=== PATIENT | female | born 1950 | race Caucasian/White ===

== ENCOUNTER 2016-07-18 05:30 | Inpatient (IN) | payer OTHER ==
[2016-07-15 10:27] LABS: BILIRUBIN,URINE NEGATIVE (NEGATIVE); BLOOD, URINE NEGATIVE (NEGATIVE); CLARITY/URINE CLEAR (CLEAR); COLOR,URINE YELLOW (YELLOW); GLUCOSE,URINE NEGATIVE (NEGATIVE); KETONES,URINE NEGATIVE (NEGATIVE); LEUKOCYTE ESTERASE ,URINE NEGATIVE (NEGATIVE); NITRITE, URINE NEGATIVE (NEGATIVE); PH,URINE 5.5 (5.0-8.0); PROTEIN URINE NEGATIVE (NEGATIVE); UROBILINOGEN,URINE 0.2 (0.2-1.0)
[2016-07-15 10:35] LABS: CREATININE 0.69 mg/dL (0.55-1.30); POTASSIUM 4.5 mmol/L (3.5-5.1)
[2016-07-15 10:49] LABS: BASOPHILS % (AUTO) 0.7 % (0.0-2.0); EOSINOPHILS % (AUTO) 0.9 % (0.0-4.0); HEMATOCRIT 46.5 % (36-48); HEMOGLOBIN 15.5 g/dL (12.0-16.0); LYMPHOCYTES # (AUTO) 1.7 K/uL (1.0-5.5); MEAN CORPUSCULAR HEMOGLOBIN 28 pg (27-31); MEAN CORPUSCULAR HGB CONC 33 % (32-36); MEAN CORPUSCULAR VOLUME 83 fL (79.0-98.0); MONOCYTES # (AUTO) 0.5 K/uL (0.0-1.0); MONOCYTES % (AUTO) 9.1 % (1.7-9.3); NEUTROPHILS # (AUTO) 3.3 K/uL (1.8-7.7); NEUTROPHILS % (AUTO) 59.3 % (40.0-70.0); PLATELET COUNT (AUTO) 269 K/uL (130-430); RED BLOOD CELL COUNT(AUTO) 5.64 MIL/uL (4.2-6.2); RED CELL DISTRIBUTION WIDTH 12.6 % (9.0-15.0); WHITE BLOOD COUNT (AUTO) 5.5 K/uL (4.8-10.8)
[2016-07-15 11:25] LABS: PROTHROMBIN TIME 10.4 SECS (9.5-12.5)
[~2016-07-18] VITALS: Ht 167.6 cm; Wt 63.5 kg
[2016-07-18] MEDS ORDERED: CELE200C PO (06:04)
[2016-07-18] MEDS ORDERED: TRAM50TA92 PO (06:04)
[2016-07-18] MEDS ORDERED: CEFAZOLIN 1 GM IVPB PREMIX 50 ML IV ONE (07:00)
[2016-07-18] MEDS ORDERED: TRANEXAMIC ACID 1,000 MG/10 ML VIAL IV ONE ×2 (07:15→07:21)
[2016-07-18] MEDS ORDERED: POLYMYXIN 500,000/BACIT.10,000 UNITS in NS IRR 1 L IR ONE (07:18)
[2016-07-18] MEDS ORDERED: NS 1000 ML BAG IV ONE (07:21)
[2016-07-18] MEDS ORDERED: CEFAZOLIN 2 GM IVPB PREMIX 50 ML IV ONE (07:21)
[2016-07-18] MEDS ORDERED: NS 100 ML BAG IV ONE (07:21)
[2016-07-18] MEDS ORDERED: ONDANSETRON HCL 4 MG/2 ML VIAL IVP ONE (07:21)
[2016-07-18] MEDS ORDERED: BUPIVACAINE /EPINEPHRINE/PF 0.5% 30 ML VIAL INJ ONE (07:21)
[2016-07-18] MEDS ORDERED: SEVOFLURANE 15 MIN GAS INH ONE (07:21)
[2016-07-18] MEDS ORDERED: PROPOFOL 200MG/ 20ML VIAL (DIPRIVAN) IV ONE (07:21)
[2016-07-18] MEDS ORDERED: KETOROLAC TROMETHAMINE 30 MG VIAL IVP ONE (07:21)
[2016-07-18] MEDS ORDERED: LIDOCAINE 2%, 20 ML MDV INJ ONE (07:21)
[2016-07-18] MEDS ORDERED: DEXAMETHASONE SOD PHOSPHATE 4 MG/ML VIAL IVP ONE (07:21)
[2016-07-18] MEDS ORDERED: fentaNYL CITRATE/PF 100 MCG/2 ML AMP IVP ONE (07:21)
[2016-07-18] MEDS ORDERED: D5/0.45 NS 1,000 ML IV ONE (09:08)
[2016-07-18] MEDS ORDERED: BISACODYL 10 MG/SUPPOSITORY RC PRN (09:15)
[2016-07-18] MEDS ORDERED: HYDROcodone/ACETAMIN 7.5-325 MG TAB PO PRN (09:15)
[2016-07-18] MEDS ORDERED: MORPHINE SULFATE 10 MG/ML VIAL IM PRN (09:15)
[2016-07-18] MEDS ORDERED: ACETAMINOPHEN 325 MG TABLET PO PRN (09:15)
[2016-07-18] MEDS ORDERED: MEPERIDINE HCL/PF 25 MG/ML DISP.SYRIN ONE (09:36)
[2016-07-18] MEDS: HYDROmorphone 1 MG INJ. 1 MG/ML AMPUL ONE ×2 (09:40→09:45)
[2016-07-18] MEDS ORDERED: HYDROmorphone 1 MG INJ. 1 MG/ML AMPUL ONE (09:52)
[2016-07-18 10:30] VITALS: BP 121/73; PULSE 78; PULSE 97; RESP 16; RESP 18; TEMP 98.8; O2SAT 97
--- NOTE | 2016-07-18 10:30 | NUR ---
Initial Note Received pt in bed, no s/s of distress or sob noted, pt has no c/o pain at this time, pt in stable condition, pt aaox4, verbal. Pt has an iv catheter, patent, no signs of infection or infiltration noted. Pt has a dressing on left knee, clean and dry, polar care and trapeze for bed mobility. Pt able to move toes on left foot, capillary refill less than 3 seconds, pulse palpable, sensation present, pt has no c/o paralysis or tingling, warm to touch. Educated pt on use of incentive spirometer, pt to use 10 times an hour while awake, pt verbalized understanding and at 2000ml. Pt has a human resources psychologist at prescribed settings. Bed at lowest position, call light within reach, will continue to monitor pt for any changes, fall precautions in place. F/c Draining via gravity and pt has a hemovac on left knee.
[2016-07-18] MEDS ORDERED: NALOXONE HCL 0.4 MG/ML AMP (NARCAN) IVP PRN (11:00)
[2016-07-18] MEDS ORDERED: MORPHINE 4 MG/ML INJ. SYRINGE IVP PRN (11:00)
--- NOTE | 2016-07-18 11:01 | NUR ---
Hospitalist Consult: for Dr. Morejon, ordered by Dr. Bloom, spoke with
--- NOTE | 2016-07-18 12:53 | NUR ---
Rounds Pt in bed, no s/s of distress or sob noted, pt has no c/o pain at this time, pt in stable condition, pt resting comfortably, will continue to monitor pt for any changes.
[2016-07-18] MEDS: CEFAZOLIN 1 GM IVPB PREMIX 50 ML IV SCH ×2 (13:52→21:28)
--- NOTE | 2016-07-18 14:01 | NUR ---
Rounds Patient is resting comfortably, no complaints of pain at this time. VALVE SEATER OPERATOR is in place for pain management. Patient is using IS as prescribed. IV antibiotics started, no evidence of infiltration, patent. No signs and symptoms of distress, stable condition. Bed in lowest position, bed alarm on, and call light within reach. Will continue to monitor.
--- NOTE | 2016-07-18 14:24 | NUR ---
Discharge Planning contacted patient's Workman's Comp contact, Krystal [phone], to discuss DC planning. Krystal stated that patient had been authorized for Out patient physical therapy 3x/wk x 4 wks, CPM, FWW, and a Cane. Krystal will be available today and tomorrow. Starting Monday07/20/16 Contact will be Danitza Viveros [phone] I met with patient at bedside and she stated that she already had a FWW and a cane and only needed the CPM. She had no preference on outpatient rehab facilities although she has been to one [facility] but does not remember the name. I contacted [facility] to see if anything had been set up through the office and she stated that she had the auth in hand and will fax to this office. But she had not set anything up as yet. [place] [employer] Claim# [id number] Date of Injury 08-18-01 [facility] [place], [place] company: [employer] [phone] Contact: [facility] Network: [facility] [phone] Addendum: 07/18/16 at 1453 by Lakia Tapia RN Contacted [facility] [phone] they requested PT order faxed to [phone] Ref#[id number]. They will then set up the outpatient PT. Addendum: 07/18/16 at 1516 by Lakia Tapia RN Daughter's address where patient will be staying once discharged: [address]
--- NOTE | 2016-07-18 14:30 | NUR ---
Neurovascular Check Pt able to move toes on left foot, capillary refill less than 3 seconds, pulse palpable, sensation present, pt has no c/o paralysis or tingling, warm to touch. Pt has a dressing on left knee, clean and dry.
--- NOTE | 2016-07-18 14:58 | NUR ---
CPM will need to be ordered once we have settings. Patient will be staying at her daughter's home in [place]. Contact is her Raymond Perez Addendum: 07/18/16 at 1525 by Lakia Tapia RN Received call from Pancho @ [employer] [phone], who called to say that he received auth from [facility] for the CPM machine. Pancho asked that he be called with DC date so he can arrange delivery of CPM machine. I gave him 's name and cell phone # along with [facility] home address where patient will be staying. [address]
[2016-07-18 16:29] VITALS: BP 121/73; PULSE 78; RESP 16; TEMP 98.8; O2SAT 97
[2016-07-18 16:36] VITALS: BP 125/78; PULSE 81; RESP 17; TEMP 98; O2SAT 98
--- NOTE | 2016-07-18 16:44 | NUR ---
NAUSEA Pt c/o nausea, no vomiting noted, dr tessie branch for orders, awaiting call back. Addendum: 07/18/16 at 1758 by Carolina Huntley RN dr radford called back and gave new orders for kiley powers
[2016-07-18] MEDS: RIVAROXABAN 10 MG TABLET PO SCH (17:39)
[2016-07-18] MEDS ORDERED: ONDANSETRON 4 MG ODT TAB PO PRN (18:00)
--- NOTE | 2016-07-18 18:10 | NUR ---
Closing Note Pt in bed, no s/s of distress or sob noted, pt has no c/o pain at this time, pt in stable condition, pt aaox4, verbal. Pt has an iv catheter, patent, no signs of infection or infiltration noted. Pt has a dressing on left knee, clean and dry, polar care and trapeze for bed mobility. Pt able to move toes on left foot, capillary refill less than 3 seconds, pulse palpable, sensation present, pt has no c/o paralysis or tingling, warm to touch. Educated pt on use of incentive spirometer, pt at 2000ml. Pt has a corn crop supervisor at prescribed settings. Bed at lowest position, call light within reach, will endorse care of pt to incoming nurse, fall precautions in place. F/c Draining via gravity and pt has a hemovac on left knee to suction.
--- NOTE | 2016-07-18 18:26 | NUR ---
Vomit Pt vomited x1, patients dumped vomit before calling nurse, per pt she stated that she vomited the xarelto and the zodran administered earlier to her. Nurse did not witness, dr tessie branch to notify, awaiting call back. Addendum: 07/18/16 at 1845 by Carolina Huntley RN dr radford called back and stated not to give xarelto that it will be given tomorrow and to give her zofran 4mg ivp q6 prn nausea and vomiting
--- NOTE | 2016-07-18 18:34 | NUR ---
PAGED PAGED DESIREE LINARES AT [phone] SPOKE WITH ELIECER.
[2016-07-18] MEDS ORDERED: ONDANSETRON HCL 4 MG/2 ML VIAL IVP PRN (18:45)
--- NOTE | 2016-07-18 20:00 | NUR ---
Initial note A/O x 3, no SOB, no chest pain, c/o mild pain 3/10 at L knee. CEMENT GUN OPERATOR (Dilaudid) in use. Skin warm to touch, IV at L FA, patent, free of infection or infiltration. S/p L knee surgery, dressing intact, Hemovac attached, some blood in the collecting bag. SCD on R leg. F/C in place, about 300 ml clear yellow urine in the bag. Patient is able to use Incentive spirometer and inhaling 2000 ml. Educated patient to use 10 times every hour while awake. Call light within reach, will continue to monitor patient.
--- NOTE | 2016-07-18 20:55 | NUR ---
NOTE: PATIENT CAME TO OUR FLOOR @ 1030 INITIAL NOTES TIME IS @ 1030 TIME ENTERED FOR TELE INPATIENT IS @ 1051 I SWITCHED A PATIENT TO TELE UNTIL 2050 NANCY DALTON OR BREASTER DID NOT NOTICE
[2016-07-18 21:00] VITALS: BP 115/64; PULSE 61; RESP 17; TEMP 97.8; O2SAT 99
--- NOTE | 2016-07-18 22:00 | NUR ---
Rounds A/O x 3, resting in bad. No SOB, no chest pain, denied pain at this time, WEB PRESS JOGGER (Dilaudid) in use. IV at L FA, patent, free of infection or infiltration. Hemovac attached, SCD on R leg, F/C in place. Incentive spirometer and Call light within reach, will continue to monitor patient.
--- NOTE | 2016-07-19 | NUR ---
Rounds A/O x 3, sleeping/resting in bad. Easy awaken. No SOB, no chest pain, denied pain at this time, MICA MINER BLASTING (Dilaudid) in use. IV at L FA, patent, free of infection or infiltration. Hemovac attached, SCD on R leg, F/C in place. Incentive spirometer and Call light within reach, will continue to monitor patient.
[2016-07-19 00:12] VITALS: BP 112/38; PULSE 75; RESP 20; TEMP 98.6; O2SAT 99
--- NOTE | 2016-07-19 02:00 | NUR ---
Rounds A/O x 3, sleeping/resting in bad. Easy awaken. No SOB, no chest pain, c/o mild pain 2/10 at neck. HULL BUILDER (Dilaudid) in use. IV at L FA, patent, free of infection or infiltration. Hemovac attached, SCD on R leg, F/C in place. Incentive spirometer and Call light within reach, will continue to monitor patient.
--- NOTE | 2016-07-19 04:10 | NUR ---
Rounds A/O x 3, sleeping/resting in bad. Easy awaken. No SOB, no chest pain, Denied pain. RADIO ELECTRICIAN (Dilaudid) in use. IV at L FA, patent, free of infection or infiltration. Hemovac attached, SCD on R leg, F/C in place. Incentive spirometer and Call light within reach, will continue to monitor patient.
[2016-07-19] MEDS: HYDROMORPHONE PCA 10 mg/50 mL IV PRN ×2 (04:38→23:05)
[2016-07-19 05:00] VITALS: BP 122/49; PULSE 75; RESP 18; TEMP 98.2; O2SAT 98
--- NOTE | 2016-07-19 06:00 | NUR ---
Closing note A/O x 3, resting in bad. No SOB, no chest pain, denied N/V, denied pain. FUELER (Dilaudid) in use. IV at L FA, patent, free of infection or infiltration. Hemovac attached, SCD on R leg, F/C in place. Incentive spirometer and Call light within reach, will give report to incoming nurse.
[2016-07-19 07:44] VITALS: BP 106/58; PULSE 71; RESP 17; TEMP 98.7; O2SAT 99
--- NOTE | 2016-07-19 07:50 | NUR ---
Initial Note Received pt in bed, no s/s of distress or sob noted, pt has no c/o pain at this time, pt in stable condition, pt aaox4, verbal. Pt has an iv catheter, patent, no signs of infection or infiltration noted. Pt has a dressing on left knee, clean and dry, polar care and trapeze for bed mobility. Pt able to move toes on left foot, capillary refill less than 3 seconds, pulse palpable, sensation present, pt has no c/o paralysis or tingling, warm to touch. Educated pt on use of incentive spirometer, pt to use 10 times an hour while awake, pt verbalized understanding and at 2000ml. Pt has a electrification adviser at prescribed settings. Bed at lowest position, call light within reach, will continue to monitor pt for any changes, fall precautions in place. F/c Draining via gravity and pt has a hemovac on left knee via suction.
--- NOTE | 2016-07-19 09:28 | NUR ---
Nutrition Update Renny Scale 18 noted. Pt admitted for unilateral primary osteoarthritis, pain L knee. Diet: regular BMI: 22.6 kg/m2 RD to follow per nutrition care standards.
[2016-07-19 11:52] LABS: BASOPHILS % (AUTO) 0.3 % (0.0-2.0); EOSINOPHILS % (AUTO) 0.1 % (0.0-4.0); HEMATOCRIT 37.9 % (36-48); HEMOGLOBIN 13.1 g/dL (12.0-16.0); LYMPHOCYTES % (AUTO) 9.9 % (20.5-51.5); MEAN CORPUSCULAR HEMOGLOBIN 29 pg (27-31); MEAN CORPUSCULAR HGB CONC 35 % (32-36); MEAN CORPUSCULAR VOLUME 84 fL (79.0-98.0); MONOCYTES # (AUTO) 0.6 K/uL (0.0-1.0); MONOCYTES % (AUTO) 6.6 % (1.7-9.3); NEUTROPHILS % (AUTO) 83.1 % (40.0-70.0); PLATELET COUNT (AUTO) 203 K/uL (130-430); RED BLOOD CELL COUNT(AUTO) 4.52 MIL/uL (4.2-6.2); RED CELL DISTRIBUTION WIDTH 13.1 % (9.0-15.0); WHITE BLOOD COUNT (AUTO) 9.6 K/uL (4.8-10.8)
[2016-07-19 11:55] LABS: CALCIUM 8.1 mg/dL (8.4-11.0); CREATININE 0.8 mg/dL (0.55-1.30); POTASSIUM 3.6 mmol/L (3.5-5.1)
[2016-07-19 12:57] VITALS: BP 107/64; PULSE 77; RESP 16; TEMP 98.8; O2SAT 98
--- NOTE | 2016-07-19 14:27 | NUR ---
PHYSICAL THERAPY CO-SIGN The Physical Therapy Progress Notes documented by Stuffer have been reviewed. Pt's SHOWING SIG PROGRESS WITH POC; CONT PER TX PLAN Reviewed/Co-Signed by: Erlinda Osullivan PT Documentation Done by: ALANNA NARANJO LACE CUTTER Addendum: 07/19/16 at 1428 by Erlinda Osullivan PT Amended: Links added.
[2016-07-19 17:28] VITALS: BP 125/73; PULSE 83; RESP 17; TEMP 98.2; O2SAT 99
[2016-07-19] MEDS: RIVAROXABAN 10 MG TABLET PO SCH (17:36)
--- NOTE | 2016-07-19 18:12 | NUR ---
Closing Note Pt in bed, no s/s of distress or sob noted, pt has no c/o pain at this time, pt in stable condition, pt aaox4, verbal. Pt has an iv catheter, patent, no signs of infection or infiltration noted. Pt has a dressing on left knee, clean and dry, polar care and trapeze for bed mobility. Pt able to move toes on left foot, capillary refill less than 3 seconds, pulse palpable, sensation present, pt has no c/o paralysis or tingling, warm to touch. Educated pt on use of incentive spirometer, pt at 2000ml. Pt has a auger machine offbearer at prescribed settings. Bed at lowest position, call light within reach, will endorse care of pt to incoming nurse, fall precautions in place. F/c Draining via gravity. Pt has cpm to be removed at 9pm.
--- NOTE | 2016-07-19 19:50 | NUR ---
Initial Note Patient in bed at this time resting, denies any pain or discomfort at this time, pain is being well controlled with ASSEMBLER METAL BUILDING of Dilaudid. Neuro check on left lower extremity, WNL. Denies any increased pain or numbness or tingling. Capillary refill less WNL. CPM on at this time, patient tolerated well. Educated patient on using incentive spirometer, was able to show proper demonstration. able to reach 2500mL. Educated patient on using 10 times per hour while awake, verbalized understanding. Call light in hand. Educated patient on using call light for assistance, verbalized understanding. Fall and safety precautions in place. Will continue to monitor.
[2016-07-19 20:00] VITALS: BP 128/76; PULSE 77; RESP 18; TEMP 99.6; O2SAT 94
--- NOTE | 2016-07-19 21:10 | NUR ---
CPM CPM off left lower leg up on pillow. Patient tolerated well.
--- NOTE | 2016-07-19 23:16 | NUR ---
RN ROUNDS Patient in bed at this time resting, respirations even and unlabored. Patient states that pain is being well managed at this time with JELLY FILTER TENDER. Call light in hand. Fall and safety precautions in place. Will continue to monitor.
--- NOTE | 2016-07-20 00:28 | NUR ---
Note Endorsed patient to Brenda Mills, patient denies any pain at this time. Respirations even and unlabored. No acute distress noted at this time.
--- NOTE | 2016-07-20 00:30 | NUR ---
[place] of Care Received patient lying in bed, no acute distress noted. States pain is tolerable at this time. Polar care maintained with ice. Re-educated on pain management, she verbalized understanding. Incentive spirometer noted at the bedside, reminded of the importance to use 10x/hour while awake. Encouraged to call with all needs. Call light is within reach, all fall and safety precautions in place, will continue to monitor.
[2016-07-20 00:36] VITALS: BP_SYST 123; BP_SYST 13; BP_DIAS 71; PULSE 87; RESP 20; TEMP 99; O2SAT 98
--- NOTE | 2016-07-20 02:38 | NUR ---
RN Rounds Patient is sleeping, respirations are even and unlabored, no acute distress noted. No non-verbal signs of pain noted at this time. Call light is within reach, all fall and safety precautions in place, will continue to monitor.
[2016-07-20 04:07] VITALS: BP 126/68; PULSE 69; RESP 20; TEMP 99; O2SAT 99
--- NOTE | 2016-07-20 04:42 | NUR ---
RN Rounds Patient is sleeping but easily arousable, no acute distress noted. Vital signs stable, states pain is tolerable at this time. Call light is within reach, all fall and safety precautions in place, will continue to monitor.
--- NOTE | 2016-07-20 06:55 | NUR ---
Closing Notes Patient is resting quietly in bed, no acute distress noted. States pain is tolerable at this time. [place]es catheter was removed per MD order, patient tolerated well. Education provided on calling for assistance to get up for void as needed, she verbalized understanding. Patient is stable, all needs met throughout shift. Will continue to monitor until endorsed to AM nurse at bedside.
--- NOTE | 2016-07-20 07:45 | NUR ---
AM ROUNDS PATIENT RESTING IN BED, AWAKE, ALERT AND ORIENTED X4, DENIES PAIN, EDUCATED THE PATIENT ON PAIN MANAGEMENT, PATIENT VERBALIZED UNDERSTANDING, EDUCATED THE PATIENT SLOT MACHINE MECHANIC LIGHT SYSTEM AND TO CALL FOR ANY ASSISTANCE, PATIENT VERBALIZED UNDERSTANDING AT THIS TIME, SURGICAL DRESSING IN PLACE ON LEFT KNEE, CLEAN DRY AND INTACT WRAPPED WITH POLAR CARE AT THIS TIME, NO OTHER NEEDS AT THIS TIME, BED IN LOWEST POSITION, THREE SIDE RAILS UP, BED ALARM ON, FALL AND ASPIRATION PRECAUTIONS IN PLACE, CALL LIGHT NEXT TO THE PATIENT'S HAND.
--- NOTE | 2016-07-20 07:50 | NUR ---
NEUROVASCULAR CHECK PEDAL PULSES PALPATED ON BILATERAL FEET, NORMAL AND STRONG, PATIENT IS ABLE TO FEEL SENSATION ON BILATERAL LOWER EXTREMITIES, CAPILLARY REFILL <3 SECONDS ON BILATERAL LOWER EXTREMITIES, PATIENT DENIES ANY NUMBNESS, TINGLING OR PAIN, IS ABLE TO MOVE TOES AND ANKLES ON BILATERAL LOWER EXTREMITIES, WILL CONTINUE TO MONITOR.
[2016-07-20 08:13] VITALS: BP 113/56; PULSE 85; RESP 16; TEMP 98.2; O2SAT 96
--- NOTE | 2016-07-20 09:30 | NUR ---
RN ROUNDS PATIENT OUT OF BED WITH PHYSICAL THERAPY, TOLERATING WELL AT THIS TIME, WILL CONTINUE TO MONITOR.
--- NOTE | 2016-07-20 10:54 | NUR ---
RN ROUNDS PATIENT RESTING IN BED, EYES CLOSED, BREATHING IS EVEN AND UNLABORED, NO SIGNS OF DISTRESS, WILL CONTINUE TO MONITOR, NO OTHER NEEDS AT THIS TIME, BED IN LOWEST POSITION, THREE SIDE RAILS UP, BED ALARM ON, FALL AND ASPIRATION PRECAUTIONS IN PLACE, CALL LIGHT NEXT TO THE PATIENT'S HAND.
[2016-07-20 12:00] VITALS: BP 110/70; PULSE 82; RESP 21; TEMP 97.1; O2SAT 97
--- NOTE | 2016-07-20 12:45 | NUR ---
RN ROUNDS PATIENT RESTING IN BED, AWAKE, ASKING FOR ASSISTANCE TO USE THE RESTROOM, ASSISTANCE GIVEN WITH PHYSICAL THERAPISTS AND USE OF WALKER, PATIENT TOLERATED WELL, WAS ABLE TO VOID IN THE RESTROOM, PATIENT RETURNED TO A CHAIR AT THE BEDSIDE, BED IN LOWEST POSITION, CALL LIGHT NEXT TO THE PATIENT'S HAND, PATIENT DENIES PAIN, WILL CONTINUE TO MONITOR.
--- NOTE | 2016-07-20 14:04 | NUR ---
RN ROUNDS PATIENT RESTING IN BED, EYES CLOSED, BREATHING IS EVEN AND UNLABORED, NO SIGNS OF DISTRESS AT THIS TIME, CPM IS IN PLACE 0-60 DEGREES, BED IN LOWEST POSITION, THREE SIDE RAILS UP, BED ALARM ON, FALL PRECAUTIONS IN PLACE, CALL LIGHT NEXT TO THE PATIENT'S HAND.
--- NOTE | 2016-07-20 14:30 | NUR ---
PHYSICAL THERAPY CO-SIGN The Physical Therapy Progress Notes documented by Accounting Policy Consultant have been reviewed. Reviewed/Co-Signed by: Charleen Cruz, PT Documentation Done by: Jose M Cano PTA I concur with the AM and PM documentation of this RN STARS. Plan: continue PT as per plan of care. Addendum: 07/20/16 at 1524 by Charleen Cruz PT Amended: Links added.
--- NOTE | 2016-07-20 15:43 | NUR ---
RN ROUNDS PATIENT RESTING IN BED, AWAKE, DENIES PAIN AT THIS TIME, CPM IN PLACE, BED IN LOWEST POSITION, THREE SIDE RAILS UP, BED ALARM ON, CALL LIGHT NEXT TO THE PATIENT'S HAND, NEUROVASCULAR CHECK PEDAL PULSES PALPATED ON BILATERAL FEET, NORMAL AND STRONG, PATIENT IS ABLE TO FEEL SENSATION ON BILATERAL LOWER EXTREMITIES, CAPILLARY REFILL <3 SECONDS ON BILATERAL LOWER EXTREMITIES, PATIENT DENIES ANY NUMBNESS, TINGLING OR PAIN, IS ABLE TO MOVE TOES AND ANKLES ON BILATERAL LOWER EXTREMITIES, WILL CONTINUE TO MONITOR.
[2016-07-20 16:00] VITALS: BP 118/71; PULSE 89; RESP 21; TEMP 98.1; O2SAT 97
[2016-07-20] MEDS: RIVAROXABAN 10 MG TABLET PO SCH (17:20)
--- NOTE | 2016-07-20 17:20 | NUR ---
RN ROUNDS PATIENT RESTING IN BED, EDUCATED ON MEDICATION AND POTENTIAL SIDE EFFECTS, PATIENT VERBALIZED UNDERSTANDING AND TOLERATED WELL, NO OTHER NEEDS AT THIS TIME, BED IN LOWEST POSITION, THREE SIDE RAILS UP, BED ALARM ON, FALL AND ASPIRATION PRECAUTIONS IN PLACE, CALL LIGHT NEXT TO THE PATIENT'S HAND.
--- NOTE | 2016-07-20 17:25 | NUR ---
INCENTIVE SPIROMETER EDUCATED PATIENT ON HOW TO USE, WHY TO USE AND HOW OFTEN TO USE THE I.S., PATIENT VERBALIZED UNDERSTANDING AND GAVE RETURN DEMONSTRATION OF 2500.
--- NOTE | 2016-07-20 18:58 | NUR ---
CLOSING NOTES PATIENT RESTING IN BED, EYES CLOSED , BREATHING IS EVEN AND UNLABORED, NO SIGNS OF DISTRESS, BED IN LOWEST POSITION, THREE SIDE RAILS UP, BED ALARM ON, CPM IN PLACE, ALL NEEDS MET, WILL ENDORSE REPORT TO NOC SHIFT NURSE.
[2016-07-20] MEDS: HYDROMORPHONE PCA 10 mg/50 mL IV PRN (19:34)
[2016-07-20 20:00] VITALS: BP 137/78; PULSE 83; RESP 18; TEMP 100.6; O2SAT 96
--- NOTE | 2016-07-20 20:00 | NUR ---
Initial PM Assessment Pt was received lying in bed fully AAO x4. Speech is clear and pt is able to make her needs known. No c/o pain or discomfort. Lt knee dressing is dry and intact with CPM machine on at 0 to 60 degrees. Pt is tolerating CPM machine well. Neurovascular checks to BLE are WNL. Pt is able to wiggle her toes. All toes have good capillary refills. DIRECTOR OF HOME HEALTH SERVICES Dilaudid is infusing well in LFA and controlling pt's Lt knee pain. IV site is without any signs of infiltration. Pt was encouraged on the use of IS 10X q 1hr WA. Pt verbalized understanding with good return demonstration and IS volume up to 2000ml. Fall and safety precautions are in place. Call light is with pt and bed alarm is on. Bed is in the lowest and locked positions. Pt was instructed to call for assistance as needed and pt verbalized understanding. Will continue to monitor pt.
--- NOTE | 2016-07-20 20:30 | NUR ---
Ambulation Pt ambulated with one assist to the toilet to void. Gait slow, but steady. Pt ambulated back to bed with one assist. No c/o pain or discomfort.
--- NOTE | 2016-07-20 20:51 | NUR ---
Elevated Temperature Tylenol 650mg given po for temp of 100.6. Ice packs applied to pt's forehead, chest and underarms.
--- NOTE | 2016-07-20 22:00 | NUR ---
Temperature Recheck Temp 99.0. Pt denies pain or discomfort. Call light is with pt and bed alarm is on.
--- NOTE | 2016-07-20 22:30 | NUR ---
CPM Removal CPM was removed and LL leg was elevated on a pillow. No c/o pain or discomfort.
--- NOTE | 2016-07-21 | NUR ---
Rounds Pt is sleeping and no respiratory distress noted. FARMWORKER FRUIT Dilaudid is infusing well. Call light is with pt and bed alarm is on.
[2016-07-21 00:05] VITALS: BP 99/61; PULSE 76; RESP 20; TEMP 98.9; O2SAT 98
--- NOTE | 2016-07-21 02:00 | NUR ---
Rounds Pt is sleeping comfortably in bed. Call light is with pt and bed alarm is on.
--- NOTE | 2016-07-21 04:00 | NUR ---
Rounds Pt is sleeping without any distress noted. SUPERVISOR ELECTRONICS ASSEMBLY Dilaudid is infusing well and call light is with pt. Bed alarm is on.
[2016-07-21 04:21] VITALS: BP 115/68; PULSE 71; RESP 16; TEMP 99.1; O2SAT 94
--- NOTE | 2016-07-21 06:30 | NUR ---
Closing Note Pt is awake and resting comfortably in bed. All pt's needs were attended to. No fall or injury noted this shift. Will endorse to day shift nurse.
[2016-07-21 08:00] VITALS: BP 129/77; PULSE 80; RESP 18; TEMP 96.8; O2SAT 95
--- NOTE | 2016-07-21 08:00 | NUR ---
RN Rounds Patient Alert oriented on GEODETIC TECHNICIAN denies pain and discomfort. patient was assessed. lungs were clear. using the incentive spirometer.pt is tolerating her CPM and we are anticipating her discharge today.
--- NOTE | 2016-07-21 09:02 | NUR ---
Notes Patient ambulating in hallway with use of front wheel walker and assistance from PT. Gait steady, ambulated 500 feet.
--- NOTE | 2016-07-21 09:39 | NUR ---
Notes CAMPUS RECRUITING COORDINATOR pump disconnected from patient. Syringe wasted in Pyxis. Educated patient on pain management, patient and acknowledged understanding.
[2016-07-21 12:00] VITALS: BP 129/77; PULSE 80; RESP 18; TEMP 96; O2SAT 95
--- NOTE | 2016-07-21 12:00 | NUR ---
RN Rounds Patient is Alert , denies pain and discomfort ,, at the bed site patient is having her lunch, patient will be D/C home as per the M.D order. they will leave in their private car.
[2016-07-21 14:04] VITALS: BP 118/71; PULSE 86; RESP 18; TEMP 98.6; O2SAT 100
--- NOTE | 2016-07-21 14:35 | NUR ---
D/C Patient Patient given medication reconciliation form and D/C instructions. Exit Care provided. Patient verbalized understanding. MD discussed with patient the results and treatment provided. Ambulatory with assistance for discharge to home with a wheel chair. Patient in stable condition, ID band removed. IV catheter removed, intact and dressing applied, no active bleeding. Rx of [place] and xarelto given. Patient educated on pain management as well as infection prevention . All belongings sent with patient.
--- NOTE | 2016-07-26 10:45 | NUR ---
Discharge Follow Up Phone Call SOCIAL ECONOMIST phoned patient, . Patient stated she was doing well, although not sleeping very well. She is improving every day. She was initially unable to fill her prescriptions due to insurance; she now has her prescriptions. She will attend her follow up appointment with Dr Bloom and then start out patient PT. She is following all instructions. She has help at home. Patient has no questions or concerns. No further follow up needed.
== END 2016-07-21 14:35 | disposition home or self-care (01) | DRG 470 ==
LOC: SMU 05:30 → STU 20:51
PROVIDERS: ADMIT Orthopaedic Surgery; ATTEND Orthopaedic Surgery
PROC: 0SRD0J9 Replacement of Left Knee Joint with Synthetic Substitute, Cemented, Open Approach (ICD-10-PCS; principal; 2016-07-18 07:30)
DX: M17.12 Unilateral primary osteoarthritis, left knee (principal); Z79.01 Long term (current) use of anticoagulants; Z91.81 History of falling
CPT/HCPCS: 36415; 71020-TC; 80048; 81003; 85025; 85610-TC; 85730-TC; 87081; 88305; 88311; 93005; 97039; 97110-GP; 97116-GP; 97530-GP; C1713; C1776; J0690; J1100; J1170; J1885; J2001; J2175; J2405; J2704; J3010; J3490; J7030; J7050; J7120; Q0162

== ENCOUNTER 2017-05-29 15:12 | Emergency (ER) | payer BC, OTHER ==
[~2017-05-29] VITALS: Ht 167.6 cm; Wt 68.0 kg
[~2017-05-29 15:12] MED LIST: TRAM50TA92 PO
[2017-05-29 15:53] VITALS: BP_SYST 138
--- NOTE | 2017-05-29 17:08 | NUR ---
Patient to ER bed 6 to gown for evaluation. Side rails up. Assumed care of patient.
--- NOTE | 2017-05-29 17:15 | NUR ---
Off unit for Ct.
--- NOTE | 2017-05-29 17:20 | NUR ---
Patient returned from CT.
--- NOTE | 2017-05-29 17:24 | NUR ---
Pt AAOx4 ambulated into ED c/o 10/31 sharp pain to R chin s/p fall. Pt reports she was painting and slipped off ladder. Pt denies KO/blurred vision/N/V. Approximately 3cm laceration to R chin, no active bleeding present. No other injuries/complaints per pt/noted. Will continue to monitor.
--- NOTE | 2017-05-29 17:26 | NUR ---
ISABEL Shrestha AIRPORT MAINTENANCE LABORER at bedside examining patient.
[2017-05-29] MEDS ORDERED: DIPH-TET-PERTUS Vaccine 0.5 ML VIAL (ADACEL) I.M. ONE (17:30)
[2017-05-29] MEDS ORDERED: HYDROcodone/ACETAMIN 7.5-325 MG TAB PO ONE (18:00)
[2017-05-29] MEDS ORDERED: LIDOCAINE 2%, 20 ML MDV INJ ONE (18:00)
--- NOTE | 2017-05-29 18:45 | NUR ---
Patient has a 3 cm laceration to R chin. Henrietta COMMERCIAL SALES DIRECTOR applied 7 sutures using sterile technique. Edges well approximated. Site cleansed with NS. Dressing applied to site. No bleeding noted. Pt tolerated well.
[2017-05-29] MEDS ORDERED: BACITRACIN 1 GM OINT TP ONE (19:15)
[2017-05-29 20:00] VITALS: BP_SYST 132
--- NOTE | 2017-05-29 20:00 | NUR ---
Patient given written and verbal discharge instructions and verbalizes understanding. ER MD discussed with patient the results and treatment provided. Patient in stable condition. ID arm band removed. Rx of Motrin, [place] and Bacitracin oint given. Patient educated on pain management and to follow up with PMD. Pain Scale 0/10. Opportunity for questions provided and answered.
== END 2017-05-29 20:00 | disposition home or self-care (01) ==
LOC: SED 15:12
DX: S42.391A Other fracture of shaft of right humerus, initial encounter for closed fracture (principal); S01.81XA Laceration without foreign body of other part of head, initial encounter; S16.1XXA Strain of muscle, fascia and tendon at neck level, initial encounter; R03.0 Elevated blood-pressure reading, without diagnosis of hypertension; W11.XXXA Fall on and from ladder, initial encounter; Y93.89 Activity, other specified; Y92.89 Other specified places as the place of occurrence of the external cause; Y99.8 Other external cause status
CPT/HCPCS: 12013; 29105; 70486; 72125; 73030; 73060; 90471; 90715; 99284; J2001